=== PATIENT | female | born 1955 | race Caucasian/White ===

== ENCOUNTER 2017-06-21 13:32 | Emergency (ER) | payer BC ==
[~2017-06-21] VITALS: Ht 172.7 cm; Wt 86.2 kg
[2017-06-21] MEDS ORDERED: Zofran4 MG PO (14:56)
== END 2017-06-21 15:08 | disposition home or self-care (01) ==
LOC: ER 13:32
DX: L50.0 Allergic urticaria (principal); Z88.2 Allergy status to sulfonamides
CPT/HCPCS: 93005; 93010; 99283

== ENCOUNTER → 2018-07-04 | Outpatient (CLI) | payer BC ==
[~2018-07-04] MED LIST: Zofran4 MG PO
== END | disposition home or self-care (01) ==
LOC: PLD 07:51 → LAB SHORT 07:51
DX: L73.8 Other specified follicular disorders (principal)
CPT/HCPCS: 88305